=== PATIENT | female | born 1985 | race African-American/Black ===

== ENCOUNTER 2021-01-04 17:02 | Emergency (ER) | payer OTHER ==
[2021-01-04 17:28] VITALS: BP 104/60; PULSE 84; TEMP 97; BMI 26.5
== END 2021-01-04 19:05 | disposition home or self-care (01) ==
LOC: JER 17:02
DX: R05 Cough (principal)
CPT/HCPCS: 71046-TC-FY; 99284-25; C9803; U0003; U0005

== ENCOUNTER 2021-09-22 11:01 | Emergency (ER) | payer OTHER ==
[2021-09-22 11:05] VITALS: BP 111/60; PULSE 65; TEMP 98.6; BMI 27.9
[2021-09-22 12:26] LABS: BASO % 0.6 % (0-2.0); EOS % 0.8 % (0-4.5); HEMATOCRIT 39.3 % (32.4-45.2); HEMOGLOBIN 13.3 GM/dL (10.7-15.3); LYMPH % 22.5 % (8-40); MCH 31.5 pg (25.7-33.7); MCHC 33.8 g/dl (32.0-36.0); MEAN CELL VOLUME 93.4 fl (80-96); MEAN PLT VOLUME 7.4 fl (7.5-11.1); NEUT % 69.1 % (42.8-82.8); PLATELET COUNT 275 10^3/uL (134-434); RBC 4.21 M/mm3 (3.60-5.2); RDW 13.5 % (11.6-15.6); WHITE BLOOD COUNT 6.9 K/mm3 (4.0-10.0)
[2021-09-22 12:28] LABS: EPI CELLS 7 /uL (0-25.1); HYALINE CASTS 1 /uL (0-3.1); PH,URINE 7.5 (5.0-8.0); URINE APPEARANCE CLEAR; URINE BACTERIA 2 /uL (0-1359); URINE BILIRUBIN NEGATIVE (NEGATIVE); URINE COLOR YELLOW; URINE GLUCOSE (UA) NEGATIVE (NEGATIVE); URINE KETONE NEGATIVE (NEGATIVE); URINE LEUK ESTERASE NEGATIVE (NEGATIVE); URINE NITRITE NEGATIVE (NEGATIVE); URINE PROTEIN NEGATIVE (NEGATIVE); URINE RBC 1 /uL (0-23.9); URINE UROBILINOGEN 0.2 mg/dL (0.2-1.0); URINE WBC 1 /uL (0-25.8)
== END 2021-09-22 15:10 | disposition home or self-care (01) ==
LOC: JER 11:01
DX: O20.9 Hemorrhage in early pregnancy, unspecified (principal); Z3A.09 9 weeks gestation of pregnancy
CPT/HCPCS: 36415; 76801-TC; 81003; 84702; 85025; 86850; 86900; 86901; 87086; 99284-25

== ENCOUNTER 2023-01-13 00:58 | Emergency (ER) | payer OTHER ==
[2023-01-13 01:03] VITALS: BP 134/56; PULSE 45; RESP 18; TEMP 98.1; BMI 37.9
[2023-01-13] MEDS ORDERED: IBUPROFEN 600 MG TABLET (FP) PO ONE ×2 (01:27→01:33)
== END 2023-01-13 03:49 | disposition home or self-care (01) ==
LOC: JER 00:58
DX: R60.9 Edema, unspecified (principal)
CPT/HCPCS: 93970-TC; 99284-25

== ENCOUNTER 2023-10-29 09:39 | Emergency (ER) | payer OTHER ==
[2023-10-29 10:03] VITALS: BP 132/79; PULSE 71; RESP 18; TEMP 98.1; BMI 31.8
[2023-10-29] MEDS ORDERED: ACETAMINOPHEN INJECTION 100 ML IVPB ONE (10:13)
[2023-10-29] MEDS ORDERED: FAMOTIDINE 20 MG/50 ML IVPB 20 MG/50 ML MG IVPB ONE (10:14)
[2023-10-29] MEDS ORDERED: MAG HYDROX/AL HYDROX/SIMETH 30 ML UNIT-DOSE CUP ONE (10:14)
[2023-10-29] MEDS: ACETAMINOPHEN 1000 MG/100 ML BAG IVPB ONE (10:30)
[2023-10-29] MEDS: FAMOTIDINE 20 MG/50 ML IVPB 20 MG/50 ML MG IVPB ONE (10:30)
[2023-10-29] MEDS: MAG HYDROX/AL HYDROX/SIMETH 30 ML UNIT-DOSE CUP PO ONE (10:32)
[2023-10-29 10:45] LABS: BASO % 0.4 % (0-2.0); EOS % 0.1 % (0-4.5); HEMATOCRIT 43.8 % (32.4-45.2); HEMOGLOBIN 14.7 GM/dL (10.7-15.3); LYMPH % 10.9 % (8-40); MCH 30.6 pg (25.7-33.7); MCHC 33.7 g/dl (32.0-36.0); MEAN CELL VOLUME 90.9 fl (80-96); MONO % 4.4 % (3.8-10.2); NEUT % 84.2 % (42.8-82.8); PLATELET COUNT 290 10^3/uL (134-434); RBC 4.81 M/mm3 (3.60-5.2); RDW 13.3 % (11.6-15.6); WHITE BLOOD COUNT 10.5 K/mm3 (4.0-10.0)
[2023-10-29 10:52] LABS: INR 0.96 (0.83-1.09); PROTHROMBIN TIME (PATIENT) 10.9 SEC (9.7-13.0)
[2023-10-29 10:54] LABS: ACTIVATED PTT 30.4 SECONDS (25.2-36.5)
[2023-10-29 11:07] LABS: POTASSIUM 3.8 mmol/L (3.5-5.1)
[2023-10-29 11:09] LABS: CALCIUM 9.2 mg/dL (8.5-10.1)
[2023-10-29 11:10] LABS: ALBUMIN 3.6 g/dl (3.4-5.0); BLOOD UREA NITROGEN 9.7 mg/dL (7-18)
[2023-10-29 11:13] LABS: CREATININE 0.8 mg/dL (0.55-1.3)
[2023-10-29 11:15] LABS: BILIRUBIN,TOTAL 0.3 mg/dL (0.2-1); TOT PROT 7.7 g/dl (6.4-8.2)
== END 2023-10-29 13:29 | disposition home or self-care (01) ==
LOC: JER 09:39
PROC: 3E033GC Introduction of Other Therapeutic Substance into Peripheral Vein, Percutaneous Approach (ICD-10-PCS; principal; 2023-10-29)
PROC: 3E033NZ Introduction of Analgesics, Hypnotics, Sedatives into Peripheral Vein, Percutaneous Approach (ICD-10-PCS; 2023-10-29)
DX: R10.13 Epigastric pain (principal); R11.0 Nausea
CPT/HCPCS: 36415; 80053; 83690; 84484; 84703; 85025; 85610; 85730; 93005; 93010; 99284-25; J0131

== ENCOUNTER 2024-08-12 09:59 | Day surgery (SDC) | payer OTHER ==
[2024-08-12] MEDS ORDERED: MAG HYDROX/AL HYDROX/SIMETH 30 ML UNIT-DOSE CUP ONE (10:57)
[2024-08-12] MEDS ORDERED: FAMOTIDINE 20 MG/50 ML IVPB 20 MG/50 ML MG IVPB ONE (10:57)
[2024-08-12] MEDS ORDERED: ACETAMINOPHEN INJECTION 100 ML ONE (10:57)
[2024-08-12] MEDS ORDERED: ONDANSETRON 4 MG/2 ML VIAL ONE (10:57)
[2024-08-12] MEDS: FAMOTIDINE 20 MG/50 ML IVPB 20 MG/50 ML MG IVPB ONE (11:37)
[2024-08-12] MEDS: ONDANSETRON 4 MG/2 ML VIAL IVPUSH ONE (11:40)
[2024-08-12] MEDS: ACETAMINOPHEN 1000 MG/100 ML BAG IVPB ONE (11:45)
[2024-08-12] MEDS: MAG HYDROX/AL HYDROX/SIMETH -MYLANTA- ORAL SUSPENSION PO ONE (11:55)
[2024-08-12 12:31] LABS: POTASSIUM 3.8 mmol/L (3.5-5.1)
[2024-08-12 12:36] LABS: BLOOD UREA NITROGEN 5.7 mg/dL (7-18); CALCIUM 9.4 mg/dL (8.5-10.1)
[2024-08-12 12:37] LABS: ALBUMIN 3.8 g/dl (3.4-5.0)
[2024-08-12 12:39] LABS: CREATININE 0.7 mg/dL (0.55-1.3)
[2024-08-12 12:40] LABS: BILIRUBIN,TOTAL 0.5 mg/dL (0.2-1)
[2024-08-12 12:41] LABS: TOT PROT 8.1 g/dl (6.4-8.2)
[2024-08-12 12:57] LABS: ABSOLUTE IMMATURE GRANULOCYTES 0.02 x10^3/uL (0.0-0.031); BASOPHILS # 0.03 x10^3/uL (0.01-0.08); EOSINOPHIL % 0.1 % (0.7-5.8); EOSINOPHILS # 0.01 x10^3/uL (0.04-0.36); HEMATOCRIT 44.8 % (34.1-44.9); HEMOGLOBIN 14.5 g/dL (11.2-15.7); MCHC 32.4 g/dl (32.2-35.5); MEAN CELL VOLUME 93.3 fl (79.4-94.8); MEAN PLT VOLUME 10.4 fl (9.4-12.3); MONOCYTE % 5.6 % (4.7-12.5); PLATELET COUNT 334 x10^3/uL (182-369); RDW 12.7 % (12.1-16.8)
[2024-08-12 13:15] LABS: HCV DIAGNOSTIC IN-HOUSE W/RFLX NON-REACTIVE (NONREACTIVE)
[2024-08-12 13:16] LABS: HIV INTERPRETATION NEGATIVE (NEGATIVE)
[2024-08-12] MEDS ORDERED: PIPERACILLIN/TAZOB 4.5 GM 4.5 GM/100 ML BAG IVPB ONE (16:51)
[2024-08-12] MEDS: PIPERACILLIN/TAZOB 4.5 GM 4.5 GM in DEXTROSE 5%-WATER 100 ML IVPB ONE (17:23)
[2024-08-12] MEDS ORDERED: traMADol HCL 50 MG TABLET PO PRN (20:14)
[2024-08-12] MEDS: SODIUM CHLORIDE 1,000 ML IV SCH (22:57)
[2024-08-13] MEDS: PIPERACILLIN/TAZOB 3.375 GM 3.375 GM in DEXTROSE 5%-WATER - 50 ML IVPB SCH ×2 (03:00→16:37)
[2024-08-13 03:26] VITALS: BMI 34.2
[2024-08-13 09:14] LABS: ABSOLUTE IMMATURE GRANULOCYTES 0.02 x10^3/uL (0.0-0.031); BASOPHILS # 0.05 x10^3/uL (0.01-0.08); EOSINOPHILS # 0.08 x10^3/uL (0.04-0.36); HEMATOCRIT 39.8 % (34.1-44.9); HEMOGLOBIN 12.5 g/dL (11.2-15.7); MCHC 31.4 g/dl (32.2-35.5); MEAN CELL VOLUME 92.6 fl (79.4-94.8); MEAN PLT VOLUME 10.3 fl (9.4-12.3); MONOCYTE # 0.72 x10^3/uL (0.24-0.86); MONOCYTE % 8.9 % (4.7-12.5); PLATELET COUNT 285 x10^3/uL (182-369); RDW 13.2 % (12.1-16.8)
[2024-08-13 09:24] LABS: INR 1.15 (0.83-1.09); PROTHROMBIN TIME (PATIENT) 12.5 SEC (9.7-13.0)
[2024-08-13 09:27] LABS: ACTIVATED PTT 26.3 SECONDS (25.2-36.5)
[2024-08-13 09:43] LABS: POTASSIUM 3.4 mmol/L (3.5-5.1)
[2024-08-13] MEDS ORDERED: MIDAZOLAM HCL 2 MG/2 ML SINGLE DOSE VIAL ONE (09:45)
[2024-08-13] MEDS ORDERED: ROCURONIUM BROMIDE 50 MG/5 ML SYRINGE ONE (09:45)
[2024-08-13] MEDS ORDERED: SUCCINYLCHOLINE CHLORIDE 200 MG/10 ML SYRINGE ONE (09:45)
[2024-08-13] MEDS ORDERED: PROPOFOL 40 ML ONE (09:46)
[2024-08-13 10:06] LABS: CALCIUM 8.7 mg/dL (8.5-10.1)
[2024-08-13 10:10] LABS: BLOOD UREA NITROGEN 5.9 mg/dL (7-18)
[2024-08-13 10:11] LABS: BILIRUBIN,TOTAL 0.8 mg/dL (0.2-1)
[2024-08-13 10:12] LABS: TOT PROT 6.4 g/dl (6.4-8.2)
[2024-08-13 10:13] LABS: CREATININE 0.8 mg/dL (0.55-1.3)
[2024-08-13 10:15] LABS: ALBUMIN 2.9 g/dl (3.4-5.0)
[2024-08-13] MEDS ORDERED: ONDANSETRON 4 MG/2 ML VIAL IVPUSH PRN ×2 (10:17→13:16)
[2024-08-13] MEDS ORDERED: BUPIVACAINE HCL/PF 0.5% (5MG/ML) 10 ML VIAL ONE (10:41)
[2024-08-13] MEDS ORDERED: LIDOCAINE HCL 1%, 10 MG/ML (20ML VIAL) ONE (10:41)
[2024-08-13] MEDS ORDERED: ACETAMINOPHEN INJECTION 100 ML ONE (10:58)
[2024-08-13] MEDS: PIPERACILLIN/TAZOBACTAM 3.375 GM VIAL IVPB ONE (11:22)
[2024-08-13] MEDS: BUPIVACAINE HCL/PF 0.5% (5MG/ML) 10 ML VIAL IJ ONE (11:25)
[2024-08-13] MEDS: LIDOCAINE HCL 1%, 10 MG/ML (20ML VIAL) INF ONE (11:25)
[2024-08-13] MEDS ORDERED: ONDANSETRON 4 MG/2 ML VIAL ONE (12:41)
[2024-08-13] MEDS ORDERED: DEXAMETHASONE SOD PHOSPHATE 4 MG/1 ML VIAL ONE ×2 (12:41)
[2024-08-13] MEDS ORDERED: KETOROLAC TROMETHAMINE 30 MG/1 ML VIAL ONE (12:41)
[2024-08-13] MEDS ORDERED: SUGAMMADEX SODIUM 200 MG/2 ML VIAL ONE (12:41)
[2024-08-13] MEDS ORDERED: ACETAMINOPHEN 500 MG TABLET (FP) PO SCH ×2 (13:30→21:30)
[2024-08-13] MEDS: LACTATED RINGERS SOLUTION 1,000 ML IV SCH (14:03)
[2024-08-13] MEDS: traMADol HCL 50 MG TABLET PO PRN (15:56)
[2024-08-13] MEDS ORDERED: ACETAMINOPHEN 1000 MG/100 ML BAG IVPB SCH (19:00)
[2024-08-13] MEDS: ACETAMINOPHEN 1000 MG/100 ML BAG IVPB SCH (19:52)
[2024-08-13] MEDS: KETOROLAC TROMETHAMINE 30 MG/1 ML VIAL IVPUSH SCH (22:43)
[2024-08-14 01:26] VITALS: RESP 18
[2024-08-14] MEDS ORDERED: IBUPROFEN 600 MG TABLET (FP) PO PRN (06:00)
[2024-08-14] MEDS: ACETAMINOPHEN 500 MG TABLET (FP) PO SCH (10:09)
[2024-08-14 14:16] VITALS: BP 124/76; PULSE 61; TEMP 98.1
== END 2024-08-14 14:41 | disposition home or self-care (01) ==
LOC: JER 09:59 → JERBED 15:36 → UNDOADMOB 15:36 → INTOOBSV 15:36 → JERBED 16:45 → UNDOADMOB 16:45 → J8W 23:23 → JERBED 23:23 → JASUSAT 08-13 13:43 → J8W 08-13 13:53 → JASUSAT 08-14 14:41
PROVIDERS: ATTEND Nurse Practitioner Family
PROC: 3E033NZ Introduction of Analgesics, Hypnotics, Sedatives into Peripheral Vein, Percutaneous Approach (ICD-10-PCS; 2024-08-13)
PROC: 3E0333Z Introduction of Anti-inflammatory into Peripheral Vein, Percutaneous Approach (ICD-10-PCS; 2024-08-13)
PROC: 3E033GC Introduction of Other Therapeutic Substance into Peripheral Vein, Percutaneous Approach (ICD-10-PCS; 2024-08-13)
PROC: 3E033NZ Introduction of Analgesics, Hypnotics, Sedatives into Peripheral Vein, Percutaneous Approach (ICD-10-PCS; 2024-08-13)
PROC: 3E033GC Introduction of Other Therapeutic Substance into Peripheral Vein, Percutaneous Approach (ICD-10-PCS; principal; 2024-08-13 14:00)
DX: K80.20 Calculus of gallbladder without cholecystitis without obstruction (principal); R11.0 Nausea
CPT/HCPCS: 36415; 71045-TC-FY; 76705-TC; 80053; 83690; 84703; 85025; 85610; 85730; 86803; 86850; 86900; 86901; 87389; 93005; 93010; 94010; 94760; 99285-25; J0131

== ENCOUNTER 2025-03-12 11:37 | Emergency (ER) | payer OTHER ==
[2025-03-12 11:43] VITALS: TEMP 98.1; BMI 32.8
[2025-03-12 15:03] LABS: GLUCOSE,RANDOM 104.0 mg/dL (74-106); TOT PROT 7.1 g/dl (6.4-8.2)
[2025-03-12 15:04] LABS: CO2 23.0 mmol/L (21-32)
[2025-03-12 15:06] LABS: ALK PHOS 66.0 U/L (40-150)
[2025-03-12 15:09] LABS: CREATININE 0.68 mg/dL (0.55-1.3); SGOT/AST 23.0 U/L (5-34); SGPT/ALT 19.0 U/L (0-55)
[2025-03-12] MEDS: METHOTREXATE SODIUM/PF 25 MG/ML VIAL IM ONE (19:14)
[2025-03-12 19:24] VITALS: BP 107/57; PULSE 69; RESP 17
== END 2025-03-12 19:45 | disposition home or self-care (01) ==
LOC: JER 11:37
DX: Z32.01 Encounter for pregnancy test, result positive (principal)
CPT/HCPCS: 36415; 80053; 84702; 99283-25; J9260